=== PATIENT | male | born 1975 | race American Indian/Alaskan Native ===

== ENCOUNTER 2024-03-06 13:06 | Inpatient (IN) | payer OTHER ==
[~2024-03-06] VITALS: Ht 180.3 cm; Wt 102.4 kg
[2024-03-06 14:28] LABS: HEMATOCRIT 55.7 % (35.0-50.0); HEMOGLOBIN 18.7 g/dL (12.0-18.0); MCH 30.2 (27-36); MCHC 33.7 g/dl (30-36); MCV 89.7 fl (81-99); PLATELET COUNT 310 K/uL (140-440); RDW 13.6 (10.5-15.0)
[2024-03-06] MEDS ORDERED: ondansetron HCL 4 MG/2 ML VIAL IV ONE ×2 (14:30→17:15)
[2024-03-06] MEDS ORDERED: SODIUM CHLORIDE 0.9% 1,000 ML IV ONE (14:30)
[2024-03-06] MEDS ORDERED: HYDROmorphone HCL 1 MG/ML SYR IV PRN ×2 (14:30→19:45)
[2024-03-06 14:37] LABS: ALBUMIN 4.2 g/dL (3.4-5.0); ALBUMIN/GLOBULIN RATIO 0.88 (1.1-2.4); ANION GAP 15.9 (7-21); BILIRUBIN, TOTAL 1.3 ng/dL (0.2-1.0); BUN/CREATININE RATIO 11.89 (6.0-28.6); CALCIUM 9.9 mg/dL (8.5-10.1); CREATININE, SERUM 1.85 mg/dL (0.70-1.30); POTASSIUM 3.9 mmol/L (3.5-5.1)
[2024-03-06 14:44] LABS: EOSINOPHILS, MANUAL DIFF 1; LYMPHOCYTES, MANUAL DIFF 4; MONOCYTES, MANUAL DIFF 7; NEUTROPHILS, MANUAL DIFF 88
[2024-03-06] MEDS ORDERED: CEFEPIME HCL/D5W 2 GM/100 ML PIGGYBACK IV ONE (16:15)
[2024-03-06] MEDS ORDERED: SODIUM CHLORIDE 0.9% 2,000 ML IV PRN (16:30)
[2024-03-06] MEDS ORDERED: metroNIDAZOLE/SODIUM CHLORIDE 100 ML IV ONE (16:33)
[2024-03-06] MEDS ORDERED: SODIUM CHLORIDE 0.9% 1,000 ML IV PRN ×2 (16:45→21:00)
[2024-03-06] MEDS ORDERED: ondansetron HCL 4 MG/2 ML VIAL ONE ×2 (16:58→17:16)
[2024-03-06] MEDS ORDERED: ENOXAPARIN SODIUM 40 MG/0.4 ML SYR SUB-Q ONE (17:00)
[2024-03-06] MEDS ORDERED: ROCURONIUM BROMIDE 50 MG/5 ML SYR ONE (17:16)
[2024-03-06] MEDS ORDERED: propofoL 200 MG/20 ML VIAL ONE (17:16)
[2024-03-06] MEDS ORDERED: SUCCINYLCHOLINE IN 0.9% NACL 200 MG/10 ML SYRINGE ONE (17:16)
[2024-03-06] MEDS ORDERED: DEXAMETHASONE SOD PHOS 4 MG/ML VIAL ONE (17:16)
[2024-03-06] MEDS ORDERED: LACTATED RINGER'S 1,000 ML IV ONE ×2 (17:16→18:42)
[2024-03-06] MEDS ORDERED: KETOROLAC TROMETHAMINE 30 MG/ML VIAL ONE (17:16)
[2024-03-06] MEDS ORDERED: MIDAZOLAM HCL 2 MG/2 ML VIAL ONE (17:16)
[2024-03-06] MEDS ORDERED: SUGAMMADEX SODIUM 200 MG/2 ML ML ONE (17:16)
[2024-03-06] MEDS ORDERED: fentaNYL citrate 100 MCG/2 ML VIAL ONE (17:16)
[2024-03-06] MEDS ORDERED: METOCLOPRAMIDE HCL 10 MG/2 ML SDV ONE (17:16)
[2024-03-06] MEDS ORDERED: LIDOCAINE HCL 4% 5 ML AMP ONE (17:17)
[2024-03-06] MEDS ORDERED: FAMOTIDINE 20 MG/ 2 ML VIAL ONE (17:17)
[2024-03-06] MEDS ORDERED: LIDOCAINE HCL 1% 30 ML SDV ONE (17:40)
[2024-03-06] MEDS ORDERED: OXYMETAZOLINE HCL 30 ML BTL ONE (18:04)
[2024-03-06] MEDS ORDERED: DIGOXIN 500 MCG/2 ML AMP ONE (18:07)
[2024-03-06] MEDS ORDERED: HYDROCORTISONE SOD SUCCINATE 100 MG/2 ML VIAL ONE (18:07)
[2024-03-06] MEDS ORDERED: droPERidol 5 MG/2 ML VIAL ONE (18:25)
[2024-03-06] MEDS ORDERED: VECURONIUM BROMIDE 20 MG VIAL IV ONE (18:26)
[2024-03-06] MEDS ORDERED: WATER STERILE 20 ML VIAL ONE (18:26)
[2024-03-06] MEDS ORDERED: dexmedeTOMIDine HCl 200 MCG/2 ML VIAL ONE ×2 (18:46→20:30)
[2024-03-06] MEDS ORDERED: EPINEPHRINE 2.25% 0.5 ML AMP ONE (19:38)
[2024-03-06] MEDS ORDERED: ALBUTEROL/IPRATROPIUM 3 ML NEB ONE (19:38)
--- NOTE | 2024-03-06 19:44 | CONS ---
[facility] [address], [place] [address] Signed DATE OF CONSULTATION: 03/06/2024 CHIEF COMPLAINT: Periumbilical pain. HISTORY OF PRESENT ILLNESS: Garo is a 48-year-old gentleman, who has had an umbilical hernia now for several years. He told me he saw me in the office at least a year ago. We were never able to supervisor dock on that surgery. He says normally he can push the hernias back inside; however, the last two days, maybe three days it has gotten stuck and he has been painful. He has had nausea and vomiting. He finally came to the emergency room for evaluation. He is tachycardic, although he does not look systemically ill or toxic. The umbilical hernia is clearly incarcerated and little tender. Lactic acid was 2.0. A CT scan of abdomen and pelvis shows the incarcerated umbilical hernia with a small bowel obstruction. I was asked to see him here urgently in the emergency room as a local general surgeon on-call. In the meantime, he is on his second liter of fluid. He just received cefepime and started on Flagyl. He has also received some pain control. PAST MEDICAL HISTORY: Umbilical hernia. PAST SURGICAL HISTORY: Tooth extraction. SOCIAL HISTORY: He smokes about three-fourth a pack of cigarettes a day. He does not drink or smoke marijuana. Lanie Willis is his primary care provider. He is unemployed currently, but works construction including welding and electrical work. He has three children and he does drive. He is no longer . His contact lens manufacturer is his aunt, Radha Watts at . FAMILY HISTORY: None. REVIEW OF SYSTEMS: He had 10 systems reviewed. There is no metal in his body. ALLERGIES: Penicillin from remotely in his childhood. MEDICATIONS: None. Electronically Signed By: PELON VENCES MD 03/06/241943 PATIENT NAME: GARO WATTS CONSULTATION DATE OF : 73 REPORT #: [id number] PHYSICIAN: PELON VENCES MD PCP: LANIE WILLIS REPORT IS CONFIDENTIAL AND NOT TO BE RELEASED WITHOUT AUTHORIZATION [facility] [address], [place] [address] Signed PHYSICAL EXAMINATION: VITAL SIGNS: Blood pressure is 141/100, heart rate 104, respiratory rate 15, temperature is 98.4, and he is 96% on room air. He is 5 feet 11 inches tall. He is 102 kg with a body mass index of 31. GENERAL: Garo is a 48-year-old gentleman, lying supine in his ER bed. He is watching TV. He is clearly uncomfortable around the umbilicus, but otherwise is not systemically ill or toxic per se. He is little tachycardic. CHEST: His lungs are clear to auscultation bilaterally. HEART: Tachycardic, without murmurs. ABDOMEN: Mildly distended, but soft. He clearly has incarcerated mass at the umbilicus. There are no overlying skin changes. It is tender. He does not seem to have any peritoneal signs or symptoms. LABORATORY DATA: His white blood cell count 24.7, hemoglobin 18.7 with neutrophils 88. BUN 22, creatinine 1.85, his CO2 is 30, lactic acid 2.0, albumin is 4.2, alkaline phosphatase up a little at 142. RADIOGRAPHIC STUDIES: CT scan of abdomen and pelvis shows the incarcerated umbilical hernia containing small bowel obstruction. ASSESSMENT AND PLAN: Garo is a 48-year-old gentleman, who presents with an incarcerated umbilical hernia causing small bowel obstruction with dehydration and acute renal failure. He is in the process of being resuscitated now and receiving his antibiotics. We are going to take him directly to the OR here within the hour for his laparotomy. Hopefully, we do not have to resect any bowel. We will close the area primarily. He understands the nature of the surgery. I did give him our brochure on hernias including umbilical hernias. This is the same brochure I gave him in the office a little over a year ago. He understands there is risk including, but not limited to bleeding, infection, scarring, change in contour of the skin, damage to bowel, anastomotic leak, recurrent hernias, and other unforeseen comorbidities. He understands expected intraop and postop course. Given his current situation, he will be standing at least one night if not more. He has expressed understanding and agrees with the above plan. Pelon Vences MD [facility] /[id number] Electronically Signed By: PELON VENCES MD 03/06/24 1944 PATIENT NAME: GARO WATTS CONSULTATION DATE OF : 73 REPORT #: [id number] PHYSICIAN: PELON VENCES MD PCP: LANIE WILLIS REPORT IS CONFIDENTIAL AND NOT TO BE RELEASED WITHOUT AUTHORIZATION [place] [phone] Signed cc: MD Lanie Tilley Copies: PELON VENCES MD, ELIZABETH ~ Electronically Signed By: PELON VENCES MD 03/06/241943 PATIENT NAME: GARO WATTS CONSULTATION DATE OF : 73 REPORT #: [id number] PHYSICIAN: PELON VENCES MD PCP: LANIE WILLSI REPORT IS CONFIDENTIAL AND NOT TO BE RELEASED WITHOUT AUTHORIZATION
[2024-03-06] MEDS ORDERED: OXYCODONE/APAP 10/325 TAB PO PRN (19:45)
[2024-03-06] MEDS ORDERED: PROCHLORPERAZINE EDISYLATE 10 MG/2 ML VIAL IV PRN (19:45)
[2024-03-06] MEDS ORDERED: ondansetron HCL 4 MG/2 ML VIAL IV PRN (19:45)
[2024-03-06] MEDS ORDERED: DEXTROSE 5% - LACTATED RINGERS 1,000 ML IV SCH (19:45)
[2024-03-06] MEDS ORDERED: PANTOPRAZOLE SODIUM 40 MG/10 ML VIAL IV SCH (19:47)
[2024-03-06] MEDS ORDERED: PHENOBARBITAL SOD 130 MG/ML VIAL IV ONE (20:15)
[2024-03-06] MEDS ORDERED: PHENOBARBITAL SOD 130 MG/ML VIAL IV PRN (20:15)
--- NOTE | 2024-03-06 20:35 | NUR ---
PT ARRIVES FORM PACU WITH CATALOG LIBRARY ASSISTANT AND ANESTHESIA. PT IS AWAKE AND BELLIGERENT AND YELLING. YELLING "GIVE ME A CUP OF WATER!" PT IS PULLING OFF OXYGEN AND SPO2 MONITOR, PULLING AT OTHER CORDS WELL. PHARMACY AIDE AND SECURITY PRESENT AT BEDSIDE. STAFF ATTEMPTING TO REASSURE PT AND ORIENT HIM TO SURROUNDINGS AND SITUATION. PT REMAINS NONCOOPERATIVE, IS ESCALATING HIS VOICE AND DEMANDS TO LEAVE THE HOSPITAL, IS TRYING TO CLIMB OUT OF BED AND HIT AT STAFF TRYING TO REPLACE HIS OXYGEN AND MONITOR. PRECEDEX BOLUS GIVEN BY ANESTHESIA. DR CROCKETT AT BEDSIDE, ORDER GIVEN FOR PRECEDEX DRIP. DRIP STARTED AT 0.4 MCG/KG/HR AND THEN TITRATED UP.
[2024-03-06] MEDS ORDERED: SODIUM CHLORIDE 0.9% 1,000 ML IV SCH (20:45)
[2024-03-06 21:00] VITALS: BP 111/90
[2024-03-06] MEDS ORDERED: CEFEPIME HCL/D5W 2 GM/100 ML PIGGYBACK IV SCH (21:00)
--- NOTE | 2024-03-06 21:17 | NUR ---
03/06/242116 Pinky Espinosa 1932-PATIENT ARRIVED TO PACU ON 10L MASK 89% NONAROUSABLE ORAL AIRWAY IN PLACE AND NASAL AIRWAY IN LEFT NARE. RN DOING JAW THRUST TO MAINTAIN OPEN AIRWAY. SR HR 70'S. ABDOMINAL DRESSING MIDLINE INTACT. MICHELLE DAWN REMAINS AT BEDSIDE AND 02 INCREASED TO 15 L. RN SUCTIONING MOUTH BLOOD RETURNED. 1935-PATIENT REMAINS NONAROUSABLE AIRWAYS IN PLACE RN DOING JAW THRUST PLACED ON 15L NONREBREATHER 02 90% RR 20 1937-BP'S HAVE BEEN 80'S SYSTOLIC MICHELLE DAWN REMAINED AT BEDSIDE AND GAVE BP MEDICATION. PATIENT REMAINS NONAROUSABLE RN CONTINUING TO DO JAW THRUST 15L NONREBREATHER MASK RR EVEN. 02 SAT 91%
--- NOTE | 2024-03-06 21:30 | NUR ---
PRECEDEX DRIP HAS CONTINUED TO BE TITRATED UP, CURRENTLY AT 1.7MCG/KG/HR. PT IS STILL OVERALL AWAKE AND AGITATED, YELLING AT STAFF FOR WATER AND REMOVING HIS OXYGEN. HE WILL OCCASIONALLY SETTLE DOWN ENOUGH TO REPLACE OXYGEN AND SPO2 MONITOR. PT NEEDS REMINDING OF HIS SURGERY AND REASONS WHY HE IS IN THE HOSPITAL. SECURITY REMAINS AT [facility].
[2024-03-06] MEDS ORDERED: HALOPERIDOL LACTATE 5 MG/ML VIAL IV ONE (21:45)
--- NOTE | 2024-03-06 21:45 | NUR ---
PT CONT TO ESCALATE, ATTEMPTING TO CLIMB OUT OF BED AND REMOVE MONITOR CORDS, OXYGEN, PULLING AT IV. CALL TO DR CROCKETT, ORDER GIVEN FOR HALDOL. 5MG IV GIVEN AND PT RELAXED, LAID BACK IN BED AND CLOSED EYES. SPO2 98%, SITTER IN ROOM, PT CONT ON INSTRUCTOR WASTEWATER TREATMENT PLANT, VAPOTHERM, AND PRECEDEX DRIP 1.7MCG/KG/HR.
--- NOTE | 2024-03-06 21:55 | NUR ---
CALL FROM DR CROCKETT, UPDATE GIVEN, PT RESTING AFTER 5MG IV HALDOL GIVEN. EYES CLOSED, RR 26, SPO2 97% ON 20L/80% VAPOTHERM. SITTER AT BEDSIDE FOR SAFETY AND FALL RISK. PRECEDEX DRIP INFUSING AT 1.7 MCG/KG/HR.
[2024-03-06 22:00] VITALS: BP 110/59
[2024-03-06] MEDS ORDERED: HALOPERIDOL LACTATE 5 MG/ML VIAL IV PRN (22:00)
[2024-03-06 23:00] VITALS: BP 100/60
[2024-03-06] MEDS ORDERED: ACETAMINOPHEN 1,000 MG/100 ML VIAL IV ONE (23:45)
--- NOTE | 2024-03-06 23:45 | NUR ---
CALL TO DR CROCKETT AND DR VENCES TO UPDATE THEM ON PT STATUS, CURRENT VS AND TEMP OF 103.2, ORDERS RECEIVED. WILL GIVE IV TYLENOL PT IS NPO AND WILL NOT ALLOW UT AT THIS TIME.
[2024-03-07] VITALS (32 sets, daily range): BP systolic 80–129; BP diastolic 47–85
[2024-03-07 00:11] LABS: AMPHETAMINES, URINE POSITIVE (NEGATIVE); BARBITURATES, URINE NEGATIVE (NEGATIVE); BENZODIAZEPINE, URINE POSITIVE (NEGATIVE); BUPRENORPHINE, URINE NEGATIVE (NEGATIVE); CANNABINOID, URINE NEGATIVE (NEGATIVE); COCAINE, URINE NEGATIVE (NEGATIVE); ECSTASY, URINE POSITIVE (NEGATIVE); FENTANYL, URINE POSITIVE (NEGATIVE); METHADONE, URINE NEGATIVE (NEGATIVE); OPIATES, URINE POSITIVE (NEGATIVE); OXYCODONE, URINE NEGATIVE (NEGATIVE); PHENCYCLIDINE, URINE NEGATIVE (NEGATIVE)
--- NOTE | 2024-03-07 02:33 | NUR ---
CALL TO DR CROCKETT TO UPDATE ON HYPOTENSION, ORDER TO GIVE LR BOLUS, REPEAT X1 PRN AND THEN START LEVOPHED IF HYPOTENSION CONTINUES.
[2024-03-07] MEDS ORDERED: LACTATED RINGER'S 1,000 ML IV ONE ×2 (02:45)
--- NOTE | 2024-03-07 02:45 | NUR ---
BLADDER SCAN SHOWS 9ML.
--- NOTE | 2024-03-07 03:29 | NUR ---
BPS HAVE IMPROVED AFTER LR BOLUS. PT CONT TO SLEEP/REST.
[2024-03-07 05:32] LABS: BASOPHILS 0.2 % (0-2); EOSINOPHILS 0.1 % (0-6); HEMATOCRIT 45.6 % (35.0-50.0); LYMPHOCYTES 3.9 % (24-44); MCH 29.9 (27-36); MCHC 32.9 g/dl (30-36); MCV 90.7 fl (81-99); MONOCYTES 5.9 % (0-12); NEUTROPHILS 89.9 % (39-80); PLATELET COUNT 148 K/uL (140-440); RBC 5.02 M/ul (4.3-5.7); RDW 13.8 (10.5-15.0)
--- NOTE | 2024-03-07 05:40 | NUR ---
LAB IN TO DRAW AND PT WAS COOPERATIVE.
[2024-03-07 05:47] LABS: ANION GAP 15.1 (7-21); BUN/CREATININE RATIO 14.97 (6.0-28.6); CALCIUM 7.8 mg/dL (8.5-10.1); CREATININE, SERUM 1.67 mg/dL (0.70-1.30); MAGNESIUM 1.5 mg/dL (1.8-2.4); PHOSPHORUS, INORGANIC 3.7 mg/dL (2.5-4.9); POTASSIUM 4.1 mmol/L (3.5-5.1)
--- NOTE | 2024-03-07 06:00 | NUR ---
PRECEDEX DRIP TURNED OFF. PT CONT TO SLEEP, SPO2 100% ON 10L/70%, FIO2 TURNED DOWN TO 60%.
--- NOTE | 2024-03-07 07:07 | OR ---
[facility] [address] [place], [place] [address] Signed DATE OF OPERATION: 03/06/2024 SURGEON: Pelon Vences MD PREOPERATIVE DIAGNOSIS: Incarcerated umbilical hernia with small bowel obstruction. POSTOPERATIVE DIAGNOSIS: Incarcerated umbilical hernia with small bowel obstruction (3 x 4 cm). PROCEDURE: Primary umbilical herniorrhaphy. ESTIMATED BLOOD LOSS: None. URINE OUTPUT: 400 mL over 70 minutes. FINDINGS: Garo had a loop of small bowel in his hernia causing his small bowel obstruction. The original fascial defect was about 3 cm, but I had to extend it 1 cm cephalad in order to get the bowel back in the abdomen without any undue tension. His bowel was thankfully quite healthy. INDICATIONS: Garo is a 48-year-old gentleman who came to me in May of 2023 for his umbilical hernia. He said he had it for many years. He said he could usually reduce it. It has gotten progressively more difficult to reduce since I saw him in the office. He has been vomiting for at least two days if not longer. He finally came to emergency room for evaluation. I have been asked to see him urgently in the emergency room. His white count is elevated and so was his hemoglobin. Lactate was 2.0. He received 2 L of saline in the ER along with his cefepime and Flagyl. He also received some Lovenox. I explained to Garo the above findings. I gave him our brochure once again on umbilical hernias. We looked at page by page. I explained to Garo that in this situation, we would not use mesh to repair his hernia. We would use a permanent Prolene suture. He understands there is recurrence rate somewhere between 3% all the way up to 15% and above. There is other risk to the surgery including, but not limited to bleeding, infection, scarring, change in contour of the skin, recurrent hernias and chronic pain. Also because of his bowel obstruction, he is going to be in the hospital a few days. Electronically Signed By: PELON VENCES MD 03/07/24 0707 PATIENT NAME: GARO WATTS OPERATIVE REPORT DATE OF : 73 REPORT #: [id number] PHYSICIAN: PELON VENCES MD PCP: LANIE WILLIS REPORT IS CONFIDENTIAL AND NOT TO BE RELEASED WITHOUT AUTHORIZATION [facility] [address] [place] [id number] Signed His small bowel is up to 5 cm in diameter. He had expressed understanding, and wished to proceed. DESCRIPTION OF PROCEDURE: Garo was taken into the operating room and placed in the supine position under general endotracheal tube anesthesia. After the balloon was inflated and the endotracheal tube was in place, he did vomit up about 4 mL of bilious gastric particulate fluid that was quickly suctioned out. After this, a Davila catheter was inserted with return of clear yellow urine. SCDs were utilized. He would be given preoperative Lovenox. He was prepped and draped in the usual sterile fashion. A standard vertical periumbilical incision was made and developed with the cautery and bluntly around the hernia. We the umbilical skin from the hernia sac with the help of the cautery in a very gentle fashion. We opened up the hernia sac and we could see his loop of bowel was a little erythematous, but not the skin certainly not black. I was able to insert my finger between the bowel and the fascial defect. The fascial defect is probably about 3 cm. I had to open the fascial defect cephalad about a centimeter in order to reduce the small bowel without any tension. The entire hernia sac was excised and passed off the field. The perineum was withdrawn a little bit, so I reached in with 2-0 PDS and I brought that back up to the fascial edge in a running fashion circumferentially around his fascial defect. We tied off the falciform ligament with an 0 Vicryl suture. We then closed the fascial defect vertically with interrupted [id number] number two Prolene sutures. Local anesthetic was copiously injected in the abdominal wall. The wound was irrigated and suctioned out until clear. We used 2-0 PDS sutures x2 to bring the umbilical skin back down to the midline fascia. The dermis was reapproximated with interrupted 3-0 subcuticular Monocryl sutures. The skin edges were reapproximated with sourav. Dry gauze and tape was then applied. After this, the Davila catheter was removed without difficulty. Garo was then awakened from his anesthesia, extubated in the OR, and taken into the recovery room in stable condition. Pelon Vences MD [facility] /[id number] cc: Patient chart Electronically Signed By: PELON VENCES MD 03/07/24 0707 PATIENT NAME: GARO WATTS OPERATIVE REPORT DATE OF : 73 REPORT #: [id number] PHYSICIAN: PELON VENCES MD PCP: LANIE WILLIS REPORT IS CONFIDENTIAL AND NOT TO BE RELEASED WITHOUT AUTHORIZATION [facility] [address] [place], [place] [address] Signed MD Lanie Tilley [facility] Copies: PELON VENCES MD ~ Electronically Signed By: PELON VENCES MD 03/07/24 0707 PATIENT NAME: BELINDA WATTSAlaina Pizano OPERATIVE REPORT DATE OF : 73 REPORT #: [id number] PHYSICIAN: PELON VENCES MD PCP: LANIE WILLIS REPORT IS CONFIDENTIAL AND NOT TO BE RELEASED WITHOUT AUTHORIZATION
[2024-03-07] MEDS ORDERED: MAGNESIUM SULFATE 2 GM/50 ML BAG IV ONE (07:15)
[2024-03-07] MEDS ORDERED: SODIUM CHLORIDE 0.9% 1,000 ML IV ONE (08:30)
--- NOTE | 2024-03-07 08:52 | NUR ---
REPORT REC'D FROM ELECTRICIAN SECOND AND PLAN OF CARE RESUMES. PATIENT'S LINEN CHANGED UNDERNEATH HIM, HE WAS ABLE TO PARTICIPATE IN THIS AND TURN. PATIENT AWAKENS EASILY AND IS PLEASANT, NO LONGER ACTING OUT OR SHOWING ANY SIGNS OF BEING VIOLENT OR COMBATIVE. PATIENT HAS NO MEMORY OF THE PRIOR NIGHT, BUT IS ALERT TO PLACE, EVENT, AND DATE. DISCUSSED WITH PATIENT AFTER DR. CROCKETT HAD BEEN IN TO SEE HIM HOW HE WOKE UP FROM HIS ANESTHESIA AFTER HIS SURGERY. PATIENT HAS HAD AN INCONTINENCE OF URINE IN THE BED AND THIS WAS CHANGED, WELL A NEW GOWN PLACED. IVF CONTINUE AT 125 ML/HR. PT'S INCISION MIDLINE IS INTACT, WITH SOME SHADOWING EVIDENT IN THE LOWER SECTION OF IT. SCDs ARE ON. WHEN PATIENT IS AWAKE, HE IS ASKING FOR SOMETHING TO DRINK AND MOUTH SWABS ARE PROVDIED, WELL A PIECE OF HARD CANDY. ORDER IS STILL NPO AT THIS TIME. ACTIVE BOWEL SOUNDS NOTED. PT DENIES ANY PAIN AT THIS TIME. PT TAKES OFF HIS VAPOTHERM OXYGEN AND IS MAINTAINING HIS SP02 ON ROOM AIR, UNTIL HE STARTS TO FALL ASLEEP. PT PLACED BACK ON REGULAR NASAL CANNULA AT 3 L. IV ABX CONTINUE, WELL REPLACEMENT DOSE OF IV MAG. WILL CONTINUE TO MONITOR CLOSELY. BED ALARM FOR SAFETY.
--- NOTE | 2024-03-07 08:57 | NUR ---
PATIENT APPEARS TO BE SLEEPING, WAKES EASILY TO VOICE. DEMOGRAPHICS VERIFIED WITH PATIENT. STATES HE LIVES IN HOUSE. HE HAS STAIRS BUT HAS NO ISSUES WITH THEM. HE HAS NO DME AT BASELINE. CONTINUES WITH ABILITY TO DRIVE. PATIENT DENIES DIFFICULTY PAYING FOR UTILITES, FOOD OR MEDICATIONS. HE DENIES ANY NEEDS AT HOME A THIS TIME. INSTRUCTED TO NOTIFY STAFF IF HE HAS NEEDS, VERBALIZES UNDERSTANDING.
[2024-03-07] MEDS ORDERED: PHENOBARBITAL SOD 130 MG/ML VIAL IV SCH (09:00)
[2024-03-07] MEDS ORDERED: ENOXAPARIN SODIUM 40 MG/0.4 ML SYR SUB-Q SCH (09:00)
[2024-03-07] MEDS ORDERED: NICOTINE 14 MG/24 HR 1 EA TDSY TD SCH (09:00)
[2024-03-07] MEDS ORDERED: MAGNESIUM REPLACEMENT PROTOCOL ORAL/IV IV SCH (10:20)
[2024-03-07] MEDS ORDERED: SODIUM CHLORIDE 0.9% 1,000 ML IV SCH (10:30)
[2024-03-07] MEDS ORDERED: POTASSIUM REPLACEMENT PROTOCOL ORAL/IV PO SCH (10:30)
[2024-03-07] MEDS ORDERED: MAGNESIUM SULFATE 2 GM/50 ML BAG IV SCH (10:36)
--- NOTE | 2024-03-07 10:44 | NUR ---
PATIENT UP TO VOID AT EDGE OF BED AND IS STABLE ON HIS FEET. PT VOIDS OF 275 ML CONCENTRATED URINE. WHILE STANDING, PT'S HEART RATE UP TO THE 120s. PT AGAIN ASKING FOR ANYTHING TO DRINK. DR. VENCES CALLED BY THIS RN AND PT IS TO REMAIN NPO DUE TO HIS BOWEL OBSTRUCTION. DISCUSSED THIS WITH PATIENT AND HE WAS OKAY WITH THIS. ALSO ENCOURAGING PATIENT TO BE UP IN CHAIR TODAY, AND ALSO TO AMBULATE IN THE LEMUS. PT CAN CONTINUE TO HAVE SWABS FOR HIS MOUTH, HARD CANDY, AND GUM. PT ALSO GIVEN INSTRUCTIONS ON INCENTIVE SPIROMETER, AND PT IS USING THIS WELL.
--- NOTE | 2024-03-07 11:44 | NUR ---
UR CLINICAL REVIEW: [facility] INPATIENT CRITERIA BASIC DMAP OBS TO INPT 03/06/24 @ 1953 ORDER MATCHES REG WILL SEND CLINICALS FOR REVIEW DISCHARGE HOME WHEN STABLE 03/09/24
--- NOTE | 2024-03-07 11:54 | NUR ---
DR. VENCES IN TO SEE PATIENT AND PLAN OF CARE DISCUSSED. PATIENT WILL CONTINUE TO BE IN CCU UNTIL TOMORROW LIKELY. PT CONTINUES TO REST AND IS CURRENTLY ON THE PHONE WITH A FRIEND NAMED JOHN, . PT TO CONTINUE BEING NPO UNTIL FURTHER ORDERS FROM DR. VENCES.
--- NOTE | 2024-03-07 12:35 | NUR ---
PATIENT UP TO WALK IN LEMUS WITH THIS RN AND TOLERATED WELL, STEADY ON HIS FEET. PT DID 3 FULL LOOPS IN CCU WELL. PT ON ROOM AIR TO AMBULATE AND SP02 MAINTAINING >90%. PT THEN VOIDS IN BATHROOM-STILL DARK AND CONCENTRATED URINE. HR IN THE 110-120s WITH AMBULATION. PT NOW RESTING IN CHAIR AND WATCHING TV. ENCOURAGING PATIENT TO AMBULATE X3 TIMES TODAY. PT HAS GOOD PAIN CONTROL AT THIS TIME AND DENIES NEEDING ANYTHING FOR PAIN.
--- NOTE | 2024-03-07 14:29 | NUR ---
VISITED DURING SPIRITUAL CARE ROUNDS. PT APPEARED TO BE SLEEPING. DID NOT DISTURB. PROVIDED PRAYER.
--- NOTE | 2024-03-07 15:32 | NUR ---
PATIENT'S TEMP NOTED TO BE 101.8, WELL HR TRENDING UP TO THE 120s, RR UP TO THE HIGH 30s RANGE. PT HAS NOW VOIDED FOR THE THIRD TIME, WITH CONCENTRATED URINE. PT HAS NOW AMBULATED IN THE LEMUS A SECOND TIME AND TOLERATED THIS WELL. DR. CROCKETT NOTIFIED OF FEVER AND INQUIRED ABOUT BLOOD CULTURES, URINE CXs, AND A CHEST XRAY. ORDERS REC'D FOR A CHEST XRAY AND A PRO BNP AT THIS TIME. PT REMAINS UP IN CHAIR AND WILL CONTINUE TO MONITOR.
[2024-03-07] MEDS ORDERED: ACETAMINOPHEN 1,000 MG/100 ML VIAL IV PRN (16:00)
[2024-03-07] MEDS ORDERED: ACETAMINOPHEN 325 MG TAB PO PRN (16:00)
--- NOTE | 2024-03-07 18:36 | NUR ---
DR. VENCES CALLED AND GIVEN AN UPDATE BY THIS RN, REPORTING THE FEVER, THE TACHYPNEA AND THE PRESENCE OF FLATUS THAT THE PATIENT HAS HAD TODAY. PT HAS AMBULATED X3 IN THE LEMUS AND DONE WELL WITH THIS. HR NOW IN THE 110s. REMAINS ON 1 L NC TOKEEP SP02 >90%, ESPECIALLY WHILE SLEEPING. NO NEW ORDERS REC'D AT THIS TIME FROM DR. VENCES. CXR RESULTS REPORTED TO HIM WELL.
--- NOTE | 2024-03-07 19:34 | NUR ---
PATIENT IS CURRENTLY RESTING IN BED, EYES CLOSED, SNORING NOTED, OXYGEN SATURATION 97% ON 1L OXYGEN N.C., HE HAS ICE TO SURGERY SITE.
--- NOTE | 2024-03-07 20:04 | NUR ---
PATIENT ALERT TO NAME, HE IS ALERT AND ORIENTED. HE IS COOPERATIVE WITH CARE. ASSESSMENT COMPLETE. DISCUSSED PLAN OF CARE WITH PATIENT. NOTED ACTIVE BOWEL TONE AND HE REPORTS FALTUS. HE REPORTS MILD PAIN AT SURGERY SITE, HE VERBALIZED HE DOES NOT WANT OR NEED PAIN MEDICATIONS AT THIS TIME, ICE PACK IN PLACE INTERMITTEN FOR PAIN MANAGEMENT.
--- NOTE | 2024-03-07 22:27 | NUR ---
GARO CALLED AND REPORTED RESTROOM NEEDS. INDEPENDENT AMBULATION TO RESTROOM. NO RESPIRATORY OR CARDIAC DISTRESS NOTED OR ENDORSED. 300CC OF LIGHT BROWN URINE VOIDED. GARO IS BACK IN BED WITH SCDS ON. ENDORSES COMFORT, ICE PACK PROVIDED
--- NOTE | 2024-03-07 23:43 | NUR ---
THIS RN ROUNDING, PATIENT ALERT AND ORIENTED. HE IS NOTED TO BE HAVING FLATUS. PATIENT PROVIDED, SWABS FOR ORAL CARE. HE IS ALSO PROVIDED A COLD WASH CLOTH TO FOREHEAD AND HE HAS ICE TO ABD.
[2024-03-08] VITALS (11 sets, daily range): BP systolic 94–141; BP diastolic 64–96
--- NOTE | 2024-03-08 02:16 | NUR ---
INDEPENDENT AMBULATION TO BATHROOM. 300CC LIGHT BROWN URINE VOIDED. BACK IN BED, ICE PACK PROVIDED, VSS WDL PER MONITOR, SCDS BACK ON
--- NOTE | 2024-03-08 03:15 | NUR ---
ROUNDING ON PATIENT, HE IS SLEEPING, SNORING NOTED. NO DISTRESS NOTED, HIS VITALS ARE STABLE PER MONITOR.
--- NOTE | 2024-03-08 04:07 | NUR ---
PATIENT UP TO BATHROOM INDEPENDENT WITH STAFF IN ROOM, HE VOIDED 325ML CONCENTRATED URINE, COLOR IS IMPROVING FROM START OF SHIFT. PATIENT TOLERATED ACTIVITY WELL.
[2024-03-08 05:21] LABS: BASOPHILS 0.1 % (0-2); EOSINOPHILS 0.7 % (0-6); HEMATOCRIT 41.7 % (35.0-50.0); HEMOGLOBIN 14.1 g/dL (12.0-18.0); LYMPHOCYTES 3.2 % (24-44); MCH 30.5 (27-36); MCHC 33.7 g/dl (30-36); MCV 90.4 fl (81-99); MONOCYTES 2.4 % (0-12); NEUTROPHILS 93.6 % (39-80); PLATELET COUNT 107 K/uL (140-440); RBC 4.62 M/ul (4.3-5.7); RDW 13.7 (10.5-15.0)
[2024-03-08 05:36] LABS: ALBUMIN 2.5 g/dL (3.4-5.0); ALBUMIN/GLOBULIN RATIO 0.68 (1.1-2.4); ANION GAP 11.1 (7-21); BILIRUBIN, TOTAL 1.2 ng/dL (0.2-1.0); BUN/CREATININE RATIO 14.06 (6.0-28.6); CALCIUM 8.4 mg/dL (8.5-10.1); CREATININE, SERUM 1.28 mg/dL (0.70-1.30); MAGNESIUM 1.8 mg/dL (1.8-2.4); PHOSPHORUS, INORGANIC 1.4 mg/dL (2.5-4.9); POTASSIUM 4.1 mmol/L (3.5-5.1); PROTEIN, TOTAL 6.2 g/dL (6.4-8.2)
--- NOTE | 2024-03-08 05:56 | NUR ---
PATIENT BACK TO BED AFTER AMBULATING TO BATHROOM INDEPENDENTLY AFTER TUBES AND LINES DISCONNECTED. HE REPORTS PAIN IS MILD AND DECLINES NEED FOR PAIN MEDICATIONS. AM ASSESSMENT COMPLETE. PATIENT HAS BEEN FEBRILE MOST OF SECOND GRADE TEACHER, T-MAX 102.5. HE HAS BEEN ADMINISTERED TYLENOL IV PRN TWICE HE REMAINS NPO. HE HAS BEEN ALERT, ORIENTED AND COOPERATIVE WITH PLAN OF CARE. PATIENT CONTINUES TO BE TACHYCARDIC AND TACHYPNEIC, HEART RANGING FROM 100-120'S BEATS A MIN., RESPIRATORY RATES IN THE 30'S/MIN MOST OF THE SHIFT.
[2024-03-08] MEDS ORDERED: SODIUM PHOSPHATE 30 MMOL in DEXTROSE 5% 250 ML IV ONE (06:30)
[2024-03-08] MEDS ORDERED: SODIUM CHLORIDE 0.9% 1,000 ML IV SCH (06:30)
[2024-03-08] MEDS ORDERED: VANCOMYCIN HCL 2,500 MG in DEXTROSE 5% 500 ML IV ONE (06:45)
[2024-03-08] MEDS ORDERED: IBUPROFEN 800 MG TAB PO PRN (06:45)
--- NOTE | 2024-03-08 07:32 | NUR ---
DR. CROCKETT IN TO SEE PATIENT AT THIS TIME. PLAN OF CARE BEING DISCUSSED. VANCO TO BE ADDED TO PATIENT'S TREATMENT. STEROIDS WILL ALSO BE ADDED. PT REMAINS ON 3 L NC BUT SP02 IS 98-100%. WILL TITRATE DOWN TO OFF.
--- NOTE | 2024-03-08 07:56 | NUR ---
URINE SENT TO LAB FOR UA AFTER PROVIDING CLEAN URINAL. PT AMBULATED INTO BATHROOM TO VOID. URINE REMAINS CONCENTRATED. PT NOW BACK IN BED. PT TOLERATING FULL LIQUID DIET WELL AND ENDORSES PLENTY OF FLATUS. TEMP 100.8 AXILLARY THIS AM. AM MEDS TO BE GIVEN. WILL CONTINUE TO MONITOR.
[2024-03-08 07:59] LABS: BILIRUBIN, URINE NEGATIVE (negative); BLOOD/HGB, URINE LARGE (Negative); KETONE, URINE NEGATIVE (Negative); LEUK ESTERASE, URINE NEGATIVE (negative); NITRITE, URINE NEGATIVE (negative); PH, URINE 6.5 (5-7)
[2024-03-08] MEDS ORDERED: ALBUTEROL SULFATE 0.083% 3 ML VIAL INH PRN (08:00)
[2024-03-08] MEDS ORDERED: ALBUTEROL/IPRATROPIUM 3 ML NEB INH SCH (08:00)
[2024-03-08 08:10] LABS: RED BLOOD CELLS, URINE 0-1 /hpf (0-5)
[2024-03-08 08:11] LABS: BACTERIA, URINE RARE /hpf (negative); CASTS, URINE NONE SEEN \\lpf; COLLECTION TYPE, URINE CLEAN CATCH; CRYSTALS, URINE NONE SEEN (0-1+); EPITHELIAL CELLS, URINE SQUAMOUS 2+ /lpf (0-1+); REFLEX CULTURE, URINE No (No)
[2024-03-08] MEDS ORDERED: VANCOMYCIN PER PHARMACY PROTOCOL IV SCH (09:00)
[2024-03-08] MEDS ORDERED: predniSONE 20 MG TAB PO SCH (09:00)
[2024-03-08] MEDS ORDERED: levalbuterol HCL 1.25 MG/0.5 ML VIAL INH PRN (09:45)
--- NOTE | 2024-03-08 10:13 | NUR ---
PATIENT UP AND WALKED IN HALLWAY FOR 4-5 ROUNDS AND TOLERATED THIS WELL. PT MOVED TO TELE #4. PT REMAINS ON 1 L OF OXYGEN WHEN RESTING, BUT WHEN AMBULATING SP02 MAITAINING >90%. PT NOW RESTING IN CHAIR. IV VANCO INFUSING NOW INTO NEW IV SITE, LEFT AC.
--- NOTE | 2024-03-08 10:19 | NUR ---
VISITED DURING SPIRITUAL CARE ROUNDS. PT IN OVERALL GOOD SPIRITS; EXPRESSED AWARENESS OF HEALTH CONDITION; DESIRE TO GET BETTER. BOOSTER PUMP OPERATOR PROVIDED SUPPORTIVE PRESENCE, HOSPITALITY, EXPLORED HOPE, PROVIDED PRAYER. PT EXPRESSED GRATITUDE.
[2024-03-08] MEDS ORDERED: IPRATROPIUM BROMIDE 2.5 ML VIAL INH SCH (12:00)
--- NOTE | 2024-03-08 12:28 | EKG ---
[facility] [address] [place], [place] [address] Signed Normal sinus rhythm Nonspecific ST and T wave abnormality Abnormal ECG No previous ECGs available Confirmed by Gilberto Subramanian ([id number]) on 03/08/2024 12:28:19 PM Electronically Signed By: GILBERTO SUBRAMANIAN MD 03/08/24 1228 PATIENT NAME: GARO WATTS Electrocardiogram DATE OF : 73 PHYSICIAN: GILBERTO SUBRAMANIAN MD REPORT #: [id number] REPORT IS CONFIDENTIAL AND NOT TO BE RELEASED WITHOUT AUTHORIZATION
--- NOTE | 2024-03-08 14:56 | NUR ---
PATIENT RESTING IN BED AT THIS TIME AND HAS CONTINUED TO SWEAT, AFTER HIS FEVER OF 102.9 THIS AM. PT WAS GIVEN MOTRIN AND THIS HAS SEEMED TO BREAK HIS FEVER. CURRENT HEART RATE IN THE 70s, AND SP02 IS 98% ON 2 L NC AT THIS TIME. IVF CONTINUE AT 100 ML/HR AND IV SODIUM PHOS HAS ALMOST COMPLETE. PT DENIES PAIN. WILL CONTINUE TO MONITOR.
[2024-03-08] MEDS ORDERED: CEFEPIME HCL/D5W 2 GM/100 ML PIGGYBACK IV SCH (15:00)
--- NOTE | 2024-03-08 15:44 | NUR ---
DR. PRIETOUNG IN TO SEE PATIENT AND DISCUSS PLAN OF CARE. NO NEW ORDERS AT THIS TIME. IF THINGS CONTINUE TO GO WELL FOR PATIENT TONIGHT, HE CAN POTENTIALLY TRANSFER TO THE MEDICAL FLOOR TOMORROW. WILL CONTINUE TO MONITOR.
--- NOTE | 2024-03-08 17:56 | NUR ---
PATIENT AWAKE AFTER HAVING A LONG NAP THIS AFTERNOON, AND FEELING A LITTLE ANXIOUS. OFFERED FOR PATIENT TO TAKE A WALK AND HE AGREES. HELPED PATIENT UP AND HE MAKES SEVERAL LAPS IN THE LEMUS. HOWEVER, WHEN WALKING HIS SP02 DOES DROP DOWN TO LOW 79%, THEREFORE WE HAD HIM WALK WITH 3-4 L OXYGEN ON. UPON ASSESSMENT BACK IN ROOM, PT DOES HAVE SOME WHEEZING HEARD IN HIS UPPER LOBES BUT THESE CLEAR AFTER A FEW BREATHS. PT REMAINS ON 1 L OXYGEN NOW. WAFFLE UNDERLAY IN CHAIR PROVIDED. PT ACCIDENTALLY PULLED IV OUT OF RIGHT AC AREA.
--- NOTE | 2024-03-08 19:30 | NUR ---
PATIENT SITTING UP IN RECLINER, ALERT AND ORIENTED. HE REPORTS "I AM FEELING BETTER" PATIENT REPORTS MILD PAIN, HE DECLINES NEED FOR PAIN COVERAGE.
[2024-03-08] MEDS ORDERED: MENTHOL/CETYLPYRD CL 1 LOZ LOZENGE MM PRN (21:00)
[2024-03-08] MEDS ORDERED: hydrOXYzine pamoate 25 MG CAP PO PRN (21:00)
[2024-03-08] MEDS ORDERED: VANCOMYCIN HCL 1,250 MG in DEXTROSE 5% 250 ML IV SCH (21:00)
--- NOTE | 2024-03-08 21:01 | NUR ---
PATIENT REPORTS FEELING, ANXIOUS/RESTLESS/CABIN FEVER, ALSO SORE THROAT FROM COUGHING. TALKED WITH ON THE PHONE, NEW ORDERS, SEE EMAR
--- NOTE | 2024-03-08 21:26 | NUR ---
PATIENT RECEIVED PHONE CALL FROM FAMILY AT HIS HOME. PATIENT NOTED TO BE VERY UPSET THERE ARE MANY PEOPLE AT HIS HOUSE HE DOES NOT WANT THERE. PATIENT ADMINISTERED VISTRIL FOR ANXIETY/RESTLESSNESS. AND THROAT CHITRA. PRN, HE IS NOTED TO DESATURATE TO 75% WITH OUT OXYGEN ON WHILE TRANSFERING AND COUGHING. PATIENT TITRATED TO 4L OXYGEN N.C. FOR NOW.
--- NOTE | 2024-03-08 22:18 | NUR ---
PATIENT SITTING UP TO BED, STILL REPORTS FEELING RESTLESS, HE REPORTS ABD PAIN 5/10, PERCOCET 1 TAB PRN ADMINISTER.
--- NOTE | 2024-03-08 23:22 | NUR ---
PATIENT REPORTS HE IS NOW FEELING MORE RELAXED, HE IS RESTING IN BED.
--- NOTE | 2024-03-08 23:55 | NUR ---
PATIENT ALERT TO NURSE AT BEDSIDE. V/S COMPLETE, TEMP 100.4F, HE REPORTS HE IS FEELING BETTER AT THIS TIME. TACHYCARDIA IS IMPROVING AFTER IBUPROFEN. PATIENT PROVIDED A COLD WASH CLOTH TO HIS FOREHEAD. PATIENT HAS NO OTHER REQUESTS AT THIS TIME
[2024-03-09] VITALS (11 sets, daily range): BP systolic 96–140; BP diastolic 64–116
--- NOTE | 2024-03-09 00:07 | NUR ---
UPDATED MELCHOR Vargas ON PATIENT FEVER AND OXYGEN DEMANDS.
--- NOTE | 2024-03-09 04:00 | NUR ---
PATIENT UP TO SIDE OF BED, HE VERBALIZED THAT HE NEEDS TO USE THE BATHROOM, THIS RN INTO ROOM, PATIENT HAS HIS OXYGEN OFF AND HAS HIS IV LINE PULLED TIGHT. THIS RN S/L PATIENT AND UNTANGLED OXYGEN LINE, EVY THEN AMBULATED TO BATHROOM, BED LINENS CHANGED, PATIENT THEN BACK OUT OF BATHROOM WITH OUT HIS OXYGEN ON, THIS RN REPLACED OXYGEN N.C. 5L, HE THEN SAID, "I CANT HAVE THIS ON IT IS TOO LOUD, ITS TOO LOUD" HE THEN PULLS THE N.C. OFF AND DROPPED IT. THIS RN PUT BACK ON PATIENT HE THEN PULLED BACK OFF, THIS RN THEN PUT BACK ON AND TOLD PATIENT THAT WOULD TRY TITRATING THE OXYGEN DOWN, Alicia ROCHE CALLED DUE TO PATIENT OXYGEN SATURATION LOW 70% AND THEN IN THE 80'S, OXYMASK PREPARED TO PLACE, OXYGEN SATURATION BACK TO 90%, MELCHOR Vargas INTO ROOM, ASSESSED AND PROVIDED PRN NEB TX. PATIENT THEN 94% ON 4L, ATTEMPTED TO MELCHOR THEN ATTEMPTED TO TITRATE PATIENT TO 3L OXYGEN AT REST, PATIENT DESATURATED TO 80%, OXYGEN INCREASED TO 5L WITH DEHUMIDIFIER (BUBBLER) PLACED. PATIENT NOW MAINTAINING GREATER THAN 90%, HE ALSO HAD SIGNIFICANT COUGHING EPISODE LASTING APPROXIMATELY 10MIN AFTER WAKING. HE IS NOW SITTING BACK IN BED AND FEELS BETTER, ON ASSESSMENT PATIENT LUNGS SOUND DIM/TIGHT BEFORE PRN TREATMENT BY Alicia
[2024-03-09] MEDS ORDERED: ALBUTEROL SULFATE 0.083% 3 ML VIAL INH PRN (05:15)
[2024-03-09 05:46] LABS: HEMATOCRIT 40.2 % (35.0-50.0); HEMOGLOBIN 13.3 g/dL (12.0-18.0); MCH 30.1 (27-36); MCHC 33.2 g/dl (30-36); MCV 90.6 fl (81-99); PLATELET COUNT 120 K/uL (140-440); RBC 4.43 M/ul (4.3-5.7); RDW 13.6 (10.5-15.0)
[2024-03-09 06:04] LABS: ALBUMIN 2.2 g/dL (3.4-5.0); ALBUMIN/GLOBULIN RATIO 0.58 (1.1-2.4); ANION GAP 12.3 (7-21); BANDS, MANUAL DIFF 14; BILIRUBIN, TOTAL 0.9 ng/dL (0.2-1.0); BUN/CREATININE RATIO 12.26 (6.0-28.6); CALCIUM 8.4 mg/dL (8.5-10.1); CREATININE, SERUM 1.06 mg/dL (0.70-1.30); EOSINOPHILS, MANUAL DIFF 1; LYMPHOCYTES, MANUAL DIFF 3; MAGNESIUM 1.6 mg/dL (1.8-2.4); MONOCYTES, MANUAL DIFF 4; NEUTROPHILS, MANUAL DIFF 78; PHOSPHORUS, INORGANIC 2.2 mg/dL (2.5-4.9); POTASSIUM 3.3 mmol/L (3.5-5.1)
[2024-03-09] MEDS ORDERED: MAGNESIUM SULFATE 2 GM/50 ML BAG IV ONE ×2 (06:30→07:00)
[2024-03-09] MEDS ORDERED: POTASSIUM PHOSPHATE 30 MMOL in DEXTROSE 5% 500 ML IV ONE (06:30)
[2024-03-09] MEDS ORDERED: BENZONATATE 100 MG CAP PO PRN (07:00)
--- NOTE | 2024-03-09 07:30 | NUR ---
report received. TO CT VIA W/C FOR CT OF CHEST. RN WITH PATIENT.
[2024-03-09] MEDS ORDERED: ALBUTEROL/IPRATROPIUM 3 ML NEB INH SCH (08:00)
--- NOTE | 2024-03-09 08:00 | NUR ---
RETURN TO ROOM 128. TOLERATED CT WELL. TRANSFER TO CHAIR, READY TO EAT BREAKFAST. ASSESSMENT DONE. DENIES INCISIONAL PAIN. INCISION IS OPEN O AIR. NO DRAINAGE NOTED. ENC USE OF ACEPELLA AND I.S. PATIENT IS VERY MOTIVATED. TALKED WITH PATIENT ABOUT POC FOR THE DAY, INDICATES UNDERSTANDING. IVF/ABX INFUSING. PATIENT IS TALKATIVE AND IS VERY THANKFUL FOR THE CARE HE HAS BEEN RECEIVING. PATIENT TOLD ME ISAI T AT TIME HE FEELS ANXIOUS DUE TO FEELING SHOT OF BREATH. DENIES THIS FEELING AT THIS TIME. REMAINS ON TELE #4.
--- NOTE | 2024-03-09 08:12 | NUR ---
PT UP IN CHAIR. RN AND RESPIRATORY IN ROOM. RN DENIES ANY NEED FOR ASSISTANCE.
--- NOTE | 2024-03-09 08:30 | NUR ---
TOOK BREAKFAST WELL. NO FUTHER CHANGES. RT HERE TO WORK WITH PATIENT.
--- NOTE | 2024-03-09 08:42 | NUR ---
UR CLINICAL/CONCURRENT REVIE: AMARJIT-CONSURRENT REVIEW COMPLETED-MEETS DAY FOR SBO. PNEUMONIA GUIDELINE ADDED-MEETS INPT CRITERIA BASIC DMAP INPT 03/06/24 @ 1307 DISCHARGE HOME WHEN STABLE 03/11/24
[2024-03-09] MEDS ORDERED: PANTOPRAZOLE SODIUM 40 MG TABEC PO SCH (09:00)
[2024-03-09 09:16] LABS: VANCOMYCIN, TROUGH 11.6 ug/mL (5.0-20.0)
--- NOTE | 2024-03-09 09:30 | NUR ---
THIS SRT IN ROOM TO ASSIST ROGELIO MCMILLAN WITH MORNING MED PASS. PT AGREEABLE TO TAKING ALL MEDICATIONS. EDUCATED PT ON THE MEDICATIONS HE IS TAKING THIS MORNING AND WHY THEY ARE IMPORTANT FOR HIS RECOVERY. TIDIED UP PT ROOM. ICE WATER FULL, CALL LIGHT WITHIN REACH. PT DENIES ANY FURTHER NEEDS AT THIS TIME.
--- NOTE | 2024-03-09 09:50 | NUR ---
CONTINUES TO SIT IN CHAIR. SHAVE GIVEN. TOLERTED WELL.
--- NOTE | 2024-03-09 10:15 | NUR ---
AMBULATING IN HALLWAY. O2 AT 5 L NC. RN WALKING WITH PATIENT. WHILE WALKING, INCREASE COUGH NOTED. UPON RETURNING TO ROOM, PATIENT CONTINUES WITH COUGH, O2 SAT 95. IS VERY DIAPHORTIC. GOWN TO OFF. PATIENT ANXIOUS WITH INCREASED WORK OF BREATH. EMOTIONAL SUPPRT GIVEN.
--- NOTE | 2024-03-09 10:15 | NUR ---
TESSALON PERLE GIVEN FOR COUGH. NON-PRODUCTIVE.
--- NOTE | 2024-03-09 10:36 | NUR ---
PHARMACY CALLED, EMAR ORDER FOR VANCO EXCEEDS ALARIS PUMP HARD LIMIT RATE OF 187.5 ML/HR. SPOKE TO YAMIL, PER YAMIL RUN VANCO AT HARD LIMIT SET IN ALARIS PUMP AND SHE WILL LOOK FURTHER INTO ISSUE
--- NOTE | 2024-03-09 10:36 | NUR ---
RT HERE TO WORK WITH PATIENT.
--- NOTE | 2024-03-09 10:47 | NUR ---
NAPPING IN CHAIR NOW.
--- NOTE | 2024-03-09 10:53 | NUR ---
PT NOT AVAILABLE FOR VISIT. PROVIDED PRAYER.
--- NOTE | 2024-03-09 12:45 | NUR ---
UPON RETURN TO BED FROM CHAIR, DEVELOPED A COUGH AND SHORTNESS OF BREATH. O2 SAT T0 80, OXYMASK APPLIED. RT HERE TO WORK WITH PATIENT.
[2024-03-09 13:59] LABS: INFLUENZA B NAA NEGATIVE (NEGATIVE); RESPIRATORY SYNCYTIAL VIR NAA NEGATIVE (NEGATIVE)
--- NOTE | 2024-03-09 14:40 | NUR ---
return to bed. HAS INCREASING COUGHING WITH MOVEMENT AND INCREASE WORK OF BREATHING AND O2 SATS GO TO MID 80'S. TAKES APPROX 5 MIN FOR PATIENT TO RECOVER AFTER MOVING. HAS PERIODS OF DIAPHORSIS. NO FEVER THUS FAR TODAY.
--- NOTE | 2024-03-09 16:00 | NUR ---
PATIENT CONTINUES TO DECOMPENSATE, WITH ANY MOVEMENT. STRUGGING WITH BREATHING THIS AFTERNOON. ABD INCISION INTACT. NO DRAINAGE NOTED. HAS BEEN DIAPHORTIC MOST OF THE AFTERNOON.
[2024-03-09 16:34] LABS: BASE EXCESS, BLOOD GAS 0.8 mmol/L (-2-2); HCO3, BLOOD GAS 25.5 mmol/L (22-26); O2 SATURATION, BLOOD GAS 91.9 % (95.0-100.0); PCO2, BLOOD GAS 39.5 mmHg (35-45); PH, BLOOD GAS 7.42 (7.35-7.45); PO2, BLOOD GAS 57 mmHg (80-100); TOTAL CO2, BLOOD GAS 26.7
[2024-03-09 16:35] LABS: OXYGEN RECEIVED, BLOOD GAS 5L
--- NOTE | 2024-03-09 16:45 | NUR ---
UP TO BEDSIDE TO USE URINAL. HR TO 135, INCREASE COUGH, O2 SAT TO MID 80'S. INCREASED WOB. MONITOR SHOWS INCREASED PVC ACTIVITY. BACK TO BED. OXYMASK APPLIED TO HELP WITH PATIENT RECOVERY FOR ACTIVITY. PATIENT ABLE TO TELL ME HE FEELS BETTER WITH OXYMASK ON. WILL HOLD DINNER. PATIENT IS AWARE AND UNDERSTANDING.
[2024-03-09] MEDS ORDERED: methylPREDNISolone SOD SUCC 40 MG/ML VIAL IV SCH (17:00)
[2024-03-09] MEDS ORDERED: POTASSIUM CHLORIDE 10 MEQ TABCR PO ONE (17:00)
[2024-03-09] MEDS ORDERED: FUROSEMIDE 40 MG/4 ML VIAL IV ONE (17:00)
--- NOTE | 2024-03-09 17:00 | NUR ---
SOLUMEDROL 40 MG IV, LASIX 40 MG IV, KCL 40 MEQ PO GIVEN ORDERED. PATIENT WILL POSSIBLY TRANSFER TO HIGHER LEVEL OF CARE.
--- NOTE | 2024-03-09 17:10 | NUR ---
PATIENT REQUESTED FOR ME TO CALL HIS AUNT, THIS DONE.
--- NOTE | 2024-03-09 17:15 | NUR ---
CPAP APPLIED. PRESSURE-10, [id number]. HOB IS ELEVATED .
--- NOTE | 2024-03-09 17:30 | NUR ---
DILAUDID 0.5 MG IV GIVEN FOR OVERALL COMFORT.
--- NOTE | 2024-03-09 17:30 | NUR ---
MALE PURE-WICK APPLIED.
--- NOTE | 2024-03-09 17:30 | NUR ---
UNABLE TO USE PURE-WICK. PATIENT PULLED IT OFF. PATIENT USED GRADUATED CYLINDER WITH THE BED IN REVERSE [place] POSITION.
--- NOTE | 2024-03-09 17:53 | NUR ---
165- call to [facility], no beds 165- call to [facility], they will call back [phone]- still waiting for call back from [facility], call to [facility], no beds
--- NOTE | 2024-03-09 17:59 | NUR ---
CALL TO [facility]- NO BEDS
--- NOTE | 2024-03-09 18:10 | NUR ---
OFF CPAPN NOW BACK ON 5 L NC. PATIENT STATES HE FEELS SO MUCH BETTER NOW. CONTINUES TO VOID TO GRADUATED CYLINDER.
--- NOTE | 2024-03-09 18:45 | NUR ---
DR. MEYERS HERE TO SEE PATIENT. PATIENT OOB PER DR. MEYERS REQUEST. HR TO 122, O2 SAT 88. PATIENT IS TALKING IN COMPLETE SENTENCE. DR. MYEERS TOLD PATIENT THE TRANSFER WILL BE CANCELLED AT THIS TIME. BACK TO BED, CPAP APPLIED. FAMILY MEMBERS ARE IN ROOM.
--- NOTE | 2024-03-09 19:00 | NUR ---
REPORT TO NEXT SHIFT.
--- NOTE | 2024-03-09 19:35 | NUR ---
REPORT RECEIVED AND CARE ASSUMED FROM ROGELIO MCMILLAN. PT VSS VIA CONTINUOUS MONITOR.
--- NOTE | 2024-03-09 19:57 | NUR ---
RT AT BEDSIDE FOR TREATMENT.
[2024-03-09] MEDS ORDERED: Acetylcysteine 800 MG/4 ML VIAL INH SCH (20:00)
--- NOTE | 2024-03-09 20:04 | NUR ---
SHIFT ASSESSMENT COMPLETE. SEE [facility] FOR DETAILS. PT REQUESTED AND PROVIDED HIS DINNER. PT DENIES ADDITIONAL NEEDS. PT STATES HE FEELS MUCH BETTER THAN EARLIER. PT STATES "I HAD A ROUGH DAY BUT I FEEL BETTER NOW" . PT VERBALIZES UNDERSTANDING TO USE CALL LIGHT WITH NEEDS. PT ON HFNC, VERBALIZED TO RT ANEL THAT HE WOULD BE WILLING TO TRY CPAP AT NIGHT. BED IN LOW, LOCKED POSITION WITH BED ALARM ON FOR PT SAFETY. PT SELF REPOSITIONING.
--- NOTE | 2024-03-09 20:50 | NUR ---
DR VENCES CALLED FOR PT STATUS UPDATE. UODATE PROVIDED. ALL QUESTIONS ANSWERED.
--- NOTE | 2024-03-09 21:25 | NUR ---
PT FRIEND JOHN CALLED FOR PT STATUS UPDATE. PER PT REQUEST PHONE CALL TRANSFERRED TO PT ROOM.
--- NOTE | 2024-03-09 21:49 | NUR ---
PT UNABLE TO TOLERATE CPAP TRIAL. OXYMASK ADDED TO HFNC TO MAINTAIN PT O2 SAT 94%. RT AT BEDSIDE. PT DENIES ADDITIONAL NEEDS. CALL LIGHT IN REACH, BED IN LOW, LOCKED POSITION WITH PERSONAL ITEMS IN REACH.
--- NOTE | 2024-03-09 22:54 | NUR ---
PT RETING IN BED WATCHING TELEVISION AND COMPLETING CROSSWORD PUZZLES. CALL LIGHT IN REACH. BED IN LOW, LOCKED POSITION. VSS AND NAD NOTED VIA DIRECT OBS, CONTINUOUS MONITOR AND PT STATEMENT.
[2024-03-10] VITALS (12 sets, daily range): BP systolic 101–125; BP diastolic 57–109
--- NOTE | 2024-03-10 | NUR ---
PT ARGUMENTATIVE, ANXIOUS AND NOT FOLLOWING COMMANDS. PT REQUESTING TO LEAVE OR BE TRANSFERRED TO A FACILITY WHERE" THEY CAN FIX ME" PT EDUCATED TO PLAN OF CARE BY DMITRY, RN AND CECILIA RN. PT DEMANDING TO SPEAK TO MD. DR. MEYERS NOTIFIED AND AT BEDSIDE PER PT REQUEST. ORDERS RECEIVED, WRITTEN DOWN, READ BACK AND ENTERED INTO EMAR.
[2024-03-10] MEDS ORDERED: MELATONIN 3 MG TAB PO SCH (00:17)
[2024-03-10] MEDS ORDERED: QUETIAPINE FUMARATE 25 MG TAB PO ONE (00:30)
[2024-03-10] MEDS ORDERED: FUROSEMIDE 40 MG/4 ML VIAL IV ONE ×2 (00:30→09:15)
--- NOTE | 2024-03-10 00:46 | NUR ---
SHIFT ASSESSMENT COMPLETE. SEE [facility] FOR DETAILS. PT WATCHING TELEVISION. PT APOLOGIZING FOR BEING AGGRESSIVE AND ARGUMENTATIVE. PT STATES "I DON'T WANT YOU TO THINK I DON'T TRUST YOU BUT I NEED TO HEAR THINGS FROM THE DOCTOR". PT MEDICATED PER EMAR. PT DENIES ADDITIONAL NEEDS. PT SELF REPOSITIONING. BED IN LOW, LOCKED POSITION. CALL LIGHT IN REACH. HFNC IN PLACE. URINALS IN REACH. VSS AND NAD NOTED VIA DIRECT OBS, CONTINUOUS MONITOR AND PT STATEMENT.
--- NOTE | 2024-03-10 01:40 | NUR ---
PATIENT IS RESTING IN BED. PATIENT PROVIDED HOT TEA. PATIENT REPORTS AN "ANNOYING COUGH". PATIENT GIVEN PRN LOZENGE PER ORDER. PATIENT PLACED ON OXYMASK VIA 11L. PATIENT IS NOTED TO BE DROWSY AND UNBALE TO KEEP EYE OPEN. PATIENT REPORTS "I AM SO SLEEPY". PATIENT GIVEN PREVIOUS SLEEP AID PER ORDER. PATIENT DENIES ANY FURTHER NEEDS. CALL LIGHT AND BELONGINGS ARE WITHIN REACH.
--- NOTE | 2024-03-10 01:56 | NUR ---
PT RESTING IN BED. PT REQUESTED LIGHTS TURNED OFF. REQUEST ROVIDED. PT DENIES ADDITIONAL NEEDS. CALL LIGHT IN REACH, BED IN LOW, LOCKED POSITION. PT SELF REPOSITIONING. VSS AND NAD NOTED VIA DIRECT OBS, CONTINUOUS MONITOR AND PT STATEMENT.
--- NOTE | 2024-03-10 02:45 | NUR ---
RECEIVED REPORT FROM ERVIN MERCADO. PATIENT IS RESTING IN BED WITH EYES CLOSED. CALL LIGHT IN REACH.
--- NOTE | 2024-03-10 03:31 | NUR ---
THIS RN IN TO CHECK ON PATIENT. PATIENT REPORTS BEING UNCOMFORTABLE IN BED. PATIENT STATED "I SLEEP IN A CHAIR AT HOME". PATIENT ASSISTED TO THE RECLINER. PATIENT ENCOURAGE TO WEAR BIPAP. PATIENT AGREED. PATIENT PLACED ON BIPAP. PATIENT DENIES ANY FURTHER NEEDS. CALL LIGHT AND BELONGINGS ARE WITHIN REACH.
--- NOTE | 2024-03-10 04:04 | NUR ---
PATIENT ASSISTED TO STAND AT THE BEDSIDE TO USE URINAL. PATIENT REQUESTED CPAP BE REMOVED. PATIENT PLACED BACK ON 15L VIA OXYMASK. PATIENT IS BACK IN RECLINER RESTING. PATIENT REQUESTS A 10 MIN BREAK FROM CPAP. NO FURTHER NEEDS NOTED. CALL LIGHT IN REACH.
--- NOTE | 2024-03-10 04:20 | NUR ---
PATIENT RESTING IN RECLINER. PATIENT PLACED BACK ON CPAP. PATIENT DENIES ANY FURTHER NEEDS. CALL LIGHT AND BELONGINGS ARE WITH IN REACH.
--- NOTE | 2024-03-10 05:07 | NUR ---
PATIENT IS RESTING IN RECLINER WITH EYES CLOSED WEARING CPAP. VITALS RECORDED. CALL LIGHT IN REACH.
[2024-03-10 05:29] LABS: HEMATOCRIT 40.1 % (35.0-50.0); HEMOGLOBIN 13.3 g/dL (12.0-18.0); MCH 29.9 (27-36); MCHC 33.2 g/dl (30-36); MCV 89.9 fl (81-99); PLATELET COUNT 174 K/uL (140-440); RBC 4.46 M/ul (4.3-5.7); RDW 13.9 (10.5-15.0)
--- NOTE | 2024-03-10 05:37 | NUR ---
LAB IN ROOM. PATIENT REQUESTING TO TAKE CPAP OFF. PATIENT PLACED ON 15L VIA OXYMASK. PATIENT REPORTS SOB. RT IN TO ADMIN PRN NEB. PATIENT IS RESTING IN RECLINER. PATIENT GIVEN PRN COUGH MEDICATION PER ORDER. PATIENT DENIES ANY PAIN. PATIENT REPORTS IMPROVEMENT IN SOB AFTER NEB. PATIENT REQUESTING TO WAIT ANOTHER 15MIN TO PLACE CPAP BACK ON. PATIENTS AM ABX INFUSING PER ORDER. PATIENT DENIES ANY FURTHER NEEDS. CALL LIGHT AND BELONGINGS ARE WITHIN REACH.
[2024-03-10 05:45] LABS: ALBUMIN 2.3 g/dL (3.4-5.0); ALBUMIN/GLOBULIN RATIO 0.55 (1.1-2.4); ANION GAP 11.9 (7-21); BILIRUBIN, TOTAL 0.8 ng/dL (0.2-1.0); BUN/CREATININE RATIO 12.69 (6.0-28.6); CALCIUM 8.9 mg/dL (8.5-10.1); CREATININE, SERUM 1.26 mg/dL (0.70-1.30); MAGNESIUM 1.6 mg/dL (1.8-2.4); POTASSIUM 3.9 mmol/L (3.5-5.1); PROTEIN, TOTAL 6.5 g/dL (6.4-8.2)
[2024-03-10 05:50] LABS: BANDS, MANUAL DIFF 5; LYMPHOCYTES, MANUAL DIFF 3; NEUTROPHILS, MANUAL DIFF 92
--- NOTE | 2024-03-10 06:04 | NUR ---
PATIENT HOLLERED OUT THAT HE NEEDED TO "SHIT". PATIENT ASSISTED TO THE BSC. PATIENT UNSTEADY DURING TRANSFER TO BS FROM CHAIR. PATIENT INSCREASED RR INTO THE 50'S AND HR INTO THE 140'S. PATIENT ON BSC. THIS RN HANDED PATIENT WIPES. PATIENT THEN BEGAN TO YELL AT THIS RN. PATIENT YELLED "I DONT NEED YO TO WIP MY FUCKING ASS". THIS RN ATTEMPTED TO EDUCATE PATIENT THAT I CASE LEAVE THE ROOM BUT EDUCATED PATIENT HE IS SOB AND HIS HR IS HIGH AND THAT THIS RN HAS TO BE IN THE ROOM FOR PATIENT SAFETY. PATIENT THEN YELLED "FUCK YOU". THIS RN UNABLE TO REDIRECT PATIENT. THIS RN STEPPED OUT OF THE ROOM. PATIENT THEN YELLED I AM DONE. THIS RN ENTERED ROOM TO ASSIST PATIENT. PATIENT YELLED AT THIS RN "FUCK YOU BITCH, YOURE FUCKING STUPID". THIS RN REQUEST THAT PATIENT NOT SPEAK TO STAFF THIS WAY. PATIENT STATED "I FUCKING HATE YOU, I DONT NEED YOU IN HERE". THIS RN EDUCATED PATIENT THAT I HAVE TO BE IN THE ROOM FOR PATIENT SAFETY. PATIENT THEN THREW A STOOL COVERED WIPE AT THIS RN. PATIENT EDUCATED THAT THIS IS NOT OK BEHAVIOR. PATIENT STATED "I DONT GIVE A FUCK, I WANT OUT OF HERE." PATIENT REQUESTED THAT HE PLACE OXYGEN BACK ON HIS FACE. PATIENT IS NOW RESTING IN BED. THIS RN TURNED OUT LIGHTS TO DECREASE STIMULI. NOTIFIED BY KADEN MERCADO. PATIENT IS IN VIEW OF RN STATION.
--- NOTE | 2024-03-10 06:37 | NUR ---
RT IN ROOM. PATIENT STATED TO RT "YOUR TREATMENTS ARENT WORKING, THIS IS BULLSHIT". RT REINFORCED TO PATIENT THAT IT IS GOING TO TAKE SOME TIME. PATIENT IS SITTING UP IN BED. DR VENCES IN ROOM.
[2024-03-10] MEDS ORDERED: MAGNESIUM SULFATE 2 GM/50 ML BAG IV SCH (06:45)
--- NOTE | 2024-03-10 07:49 | NUR ---
REPORT REC'D FROM BULK PIGMENT REDUCER RN AND PLAN OF CARE RESUMES. DR. MEYERS IN TO SEE PATIENT THIS AM AND PLAN IS TO TRANSFER PATIENT TO HIGHER LEVEL OF CARE. ABG TO BE DRAWN FROM RT. RT IN ROOM AT THIS TIME AND PT IS RECEIVING NEB TX, WELL BEING SWITCHED TO THE VAPOTHERM. WILL CONTINUE TO MONITOR.
[2024-03-10] MEDS ORDERED: SOD PHOS MONO/SOD PHOS DIBAS 250 MG TAB PO SCH (08:00)
[2024-03-10] MEDS ORDERED: methylPREDNISolone SOD SUCC 125 MG/2 ML VIAL IV SCH (08:15)
[2024-03-10 08:32] LABS: HCO3, BLOOD GAS 29.1 mmol/L (22-26); O2 SATURATION, BLOOD GAS 99.2 % (95.0-100.0); PCO2, BLOOD GAS 41.8 mmHg (35-45); PH, BLOOD GAS 7.46 (7.35-7.45); PO2, BLOOD GAS 107 mmHg (80-100); TOTAL CO2, BLOOD GAS 30.3
[2024-03-10 08:33] LABS: OXYGEN RECEIVED, BLOOD GAS 100%
[2024-03-10] MEDS ORDERED: MAGNESIUM OXIDE 400 MG TABLET PO SCH (09:00)
--- NOTE | 2024-03-10 09:42 | NUR ---
NEW IV SITE PLACED IN LEFT FOREARM, 20 G ACCUCATH. PT TOLERATED FAIR. PT IS BECOMING VERY FRUSTRATED AND ANXIOUS, SAYING, "I CAN'T DO THIS SHIT NO MORE, I CAN'T TAKE THE TALKING, CAN'T TAKE THE POKING AND PRODING, AND I'M NOT GETTING NO BETTER. I CAN'T TAKE THIS SHIT NO MORE. THIS IS BRUTAL." PATIENT NOW TALKING ON THE PHONE WITH HIS DAUGHTER. PT TAKES VAPOTHERM OFF AND REFUSING TO PT BACK ON, BUT DOES PUT ON OXYMASK. IV SITE IN LEFT AC AREA D/C.
--- NOTE | 2024-03-10 10:34 | NUR ---
40 MG IV LASIX GIVEN AND PT NOW VOIDING EVERY 10 MINUTES INTO URINAL. PT REFUSING CATHETER OR ANY OTHER TYPE OF MALE EXTERNAL CATHETER. PT STATES HE TRIED A MALE PUREWICK YESTERDAY BUT IT DIDN'T WORK FOR HIM, AND HE JUST WANTS TO VOID TO URINAL. TO AVOID PT GETTING UP OUT OF BED AND EXHAUSTING HIMSELF, HE IS ABLE TO VOID WHILE LAYING DOWN WITH BED IN REVERSE TRENDELENBERG. PT HAS BEEN EMOTIONAL TODAY, AND VERY FRUSTATED OVERALL WITH HIS STATUS, HIS CONDITION AND FEELING LIKE IT ISN'T IMPROVING. CURRENTLY PATIENT IS ON 25L AND 75% WITH SP02 OF 95%. RR IS 40 AT THIS TIME. HR IN THE 100s AT THIS TIME.
[2024-03-10] MEDS ORDERED: propofoL 200 MG/20 ML VIAL ONE (11:45)
[2024-03-10] MEDS ORDERED: propofoL 100 ML IV ONE (11:59)
[2024-03-10] MEDS ORDERED: propofoL 100 ML IV SCH (12:30)
--- NOTE | 2024-03-10 12:47 | NUR ---
PATIENT INTUBATED AT 1151 BY RADIO PERFORMER. PATIENT TOLERATED THIS WELL. PATIENT REQUESTING THAT WE CALL HIS FAMILY BEFORE HIS TRANSFER. PT TRANSFERRING TO [facility] IN ROOM 10-112. PT INTUBATED WTIH 8.0 ETT, SECURED AT 24 AT THE TEETH. PT HAS HAD ALMOST 2 L OF URINE OUTPUT SINCE THE DOSE OF LASIX WAS GIVEN THIS AM. RUBI CATH INSERTED AFTER INTUBATION. OG TUBE ALSO PLACED AFTER INTUBATION. CXR PERFORMED SHOWING ADEQUATE PLACEMENT OF BOTH TUBES. DR. MEYERS AT BEDSIDE DURING INTUBATION. LIFELIGHT MANAGING VENT SETTINGS BUT IT APPEARED THAT THEY WERE CMV OF 24, PEEP 10, VT 550, 100% FI02. ALL PERSONAL BELONGINGS IN GREEN SAH BAG. PT LEFT AT 1245 WITH [facility].
--- NOTE | 2024-03-10 13:28 | NUR ---
RT ASSISTED WITH INTUBATION OF AN 8.0 TUBE AND WAS SECURED AT [address] ON [facility] TEAM VENT.
--- NOTE | 2024-03-14 11:37 | DS ---
[facility] [address], [place] [address] Signed ADMISSION DATE: 03/06/2024 DISCHARGE DATE: 03/10/2024 FINAL DIAGNOSES: 1. Incarcerated umbilical hernia with small bowel obstruction. 2. Respiratory failure. PROCEDURES: 1. CT scan of the abdomen and pelvis. 2. CT scan of the chest. 3. Chest x-rays. 4. Primary repair of umbilical hernia. HISTORY OF PRESENT ILLNESS: Garo is a 48-year-old gentleman, who had an umbilical hernia for several years. He actually came in my office last fall, but never hooked up for the surgery. He ended up in the emergency room when he could no longer reduce the umbilical hernia and it was painful. He had nausea and vomiting and was quite dehydrated. I was asked to see him emergently in the emergency room. The CT scan confirmed a small bowel in his umbilical hernia. HOSPITAL COURSE: We took Garo directly from the ER over to the OR after resuscitation and some antibiotics. He underwent an uncomplicated midline incision reduction of viable small bowel and primary repair of the hernia. He was then admitted to the ICU. We did ask our Medical Service to help us manage him as well. His GI function returned quite nicely as expected. Unfortunately, he had what looked like bilateral pneumonia and/or ARDS. His pulmonary status continued to decline and his oxygen requirements continued to increase. Our hospitalist felt it was best that he be transferred to a higher level of care. The hospitalist made arrangements for Garo to go over to our [facility] in [place], [place]. DISCHARGE PLANS AND MEDICATIONS: Garo is being transferred over to [facility] for his respiratory failure. Garo understands I will be seeing him in my office for his surgical followup once he is discharged from the [facility]. He has expressed understanding and agrees with the above plan. Electronically Signed By: PELON VENCES MD 03/14/24 1137 PATIENT NAME: GARO WATTS Jerica DISCHARGE SUMMARY DATE OF : 73 REPORT #: [id number] PHYSICIAN: PELON VENCES MD PCP: LANIE WILLIS REPORT IS CONFIDENTIAL AND NOT TO BE RELEASED WITHOUT AUTHORIZATION [address] [place], [place] [address] Signed Pelon Vences MD ALB/MODL /[id number] cc: Lanie Willis [facility] Pelon Vences MD Copies: LANIE WILLIS ANDREW L MD ~ Electronically Signed By: PELON VENCES MD 03/14/24 1137 PATIENT NAME: GARO WATTS DISCHARGE SUMMARY DATE OF : 73 REPORT #: [id number] PHYSICIAN: PELON VENCES MD PCP: LANIE WILLIS PAC REPORT IS CONFIDENTIAL AND NOT TO BE RELEASED WITHOUT AUTHORIZATION
== END 2024-03-10 12:45 | disposition short-term general hospital (02) | DRG 353 ==
LOC: ED 13:06 → CCU 13:07 → MS 13:07 → CCU 20:07
PROVIDERS: Emergency Medicine; Family Medicine; Student in an Organized Health Care Education/Training Program; ADMIT Colon & Rectal Surgery; ATTEND Colon & Rectal Surgery
PROC: 0WQF0ZZ Repair Abdominal Wall, Open Approach (ICD-10-PCS; principal; 2024-03-06 18:11)
PROC: 0DH67UZ Insertion of Feeding Device into Stomach, Via Natural or Artificial Opening (ICD-10-PCS; 2024-03-08)
PROC: 4A033R1 Measurement of Arterial Saturation, Peripheral, Percutaneous Approach (ICD-10-PCS; 2024-03-09)
DX: K42.0 Umbilical hernia with obstruction, without gangrene (principal); J18.9 Pneumonia, unspecified organism; J96.01 Acute respiratory failure with hypoxia; N17.9 Acute kidney failure, unspecified; J44.1 Chronic obstructive pulmonary disease with (acute) exacerbation; J44.0 Chronic obstructive pulmonary disease with (acute) lower respiratory infection; F17.210 Nicotine dependence, cigarettes, uncomplicated; E86.0 Dehydration; R45.1 Restlessness and agitation; E86.1 Hypovolemia; E80.6 Other disorders of bilirubin metabolism; D69.6 Thrombocytopenia, unspecified; E83.39 Other disorders of phosphorus metabolism; E87.6 Hypokalemia; R73.9 Hyperglycemia, unspecified; D75.1 Secondary polycythemia; E83.42 Hypomagnesemia; R41.0 Disorientation, unspecified; E66.01 Morbid (severe) obesity due to excess calories; Z68.31 Body mass index [BMI] 31.0-31.9, adult; Z98.890 Other specified postprocedural states; Z88.0 Allergy status to penicillin
CPT/HCPCS: 00830; 31500; 36415; 36600; 51702; 51798; 71045; 71260; 74177; 80048; 80053; 80202; 80307; 81001; 82803; 83036; 83605; 83690; 83735; 83880; 84100; 85025; 87040; 87502; 93005; 93010; 94640; 94660; 94667; 94668; 94799; 99406; A9270; G0480; J0131; J0330; J0692; J1100; J1160; J1170; J1630; J1650; J1720; J1790; J1885; J1940; J2250; J2405; J2470; J2704; J2765; J2919; J3010; J3370; J3475; J3490; J7030; J7060; J7121; J7512; Q0177; Q9967; U0002